=== PATIENT | male | born 1965 | race Caucasian/White ===

== ENCOUNTER 2016-09-22 19:41 | Emergency (ER) | payer SELFPAY ==
[~2016-09-22] VITALS: Ht 193 cm; Wt 78.0 kg
[~2016-09-22 19:41] MED LIST: ALBU6.7H INH; ALBU8I INH
[2016-09-22 19:43] VITALS: BP 131/80; PULSE 98; RESP 16; TEMP 98; O2SAT 97
== END 2016-09-22 20:01 | disposition left against medical advice (07) ==
LOC: NED 19:55
DX: R11.2 Nausea with vomiting, unspecified (principal); Z53.21 Procedure and treatment not carried out due to patient leaving prior to being seen by health care provider
CPT/HCPCS: 99281

== ENCOUNTER 2016-10-14 06:36 | Emergency (ER) | payer SELFPAY ==
[~2016-10-14] VITALS: Ht 193 cm; Wt 75.0 kg
[2016-10-14 06:38] VITALS: BP 154/101; PULSE 105; RESP 16; TEMP 97.9; O2SAT 99
== END 2016-10-14 08:26 | disposition left against medical advice (07) ==
LOC: NED 06:36
DX: R10.9 Unspecified abdominal pain (principal); R19.7 Diarrhea, unspecified; Z53.21 Procedure and treatment not carried out due to patient leaving prior to being seen by health care provider
CPT/HCPCS: 99281